=== PATIENT | female | born 1965 | race Hispanic/Latino ===

== ENCOUNTER 2017-07-07 13:24 | Emergency (ER) | payer BC ==
[~2017-07-07] VITALS: Ht 157.5 cm; Wt 78.7 kg
[~2017-07-07 13:24] MED LIST: CITRATE OF MAG296 ML PO; FLEXERIL5 MG PO; ULTRAM50 MG PO
[2017-07-07 14:04] LABS: HEMATOCRIT 39.8 % (36.0-46.0); MCH 28.7 PG (29.0-34.0); MCHC 34.2 G/DL (30.0-36.0); MEAN PLAT.VOLUME 10.2 uM^3 (9.5-12.4); PLATELET COUNT 255 K/uL (156-360); RBC DIS.WIDTH-CV 12.3 % (11.8-14.6); RBC DIS.WIDTH-SD 37.1 % (39-53); RED BLOOD COUNT 4.74 M/uL (3.80-5.20); WHITE BLOOD COUNT 7.9 K/uL (4.1-10.2)
[2017-07-07 14:12] LABS: ADD MIUA? YES; BILIRUBIN NEGATIVE; BLOOD NEGATIVE; COLOR STRAW ((YELLOW)); GLUCOSE (STRIP) NEGATIVE; KETONES NEGATIVE; LEUKOCYTES LARGE; NITRITE NEGATIVE; PROTEIN (STRIP) NEGATIVE; SPECIFIC GRAVITY 1.008 (1.000-1.030); UROBILINOGEN 0.2 MG/DL (0.2-1.0)
[2017-07-07 14:14] LABS: CHLORIDE 106 mEq/L (99-109); POTASSIUM 4.4 mEq/L (3.7-5.4); SODIUM 139 mEq/L (136-147)
[2017-07-07 14:16] LABS: BACTERIA RARE /HPF; EPITHELIAL CELLS 1+ /HPF; MUCUS NONE SEEN /LPF; RED BLOOD CELLS 0-5 /HPF (0-5); UCUL ADDED? NO; WHITE BLOOD CELLS 0-5 /HPF (0-5)
[2017-07-07 14:16] LABS: GLUCOSE 91 mg/dL (70-99)
[2017-07-07 14:17] LABS: ANION GAP 8 MEQ/L (2-14)
[2017-07-07 14:18] LABS: TOTAL BILIRUBIN 0.4 mg/dL (0.0-1.0)
[2017-07-07 14:20] LABS: ALKALINE PHOSPHATASE 79 IU/L (3-129); GFR ESTIMATE (CALCULATED) > 59 mL/min/
[2017-07-07 14:21] LABS: UREA NITROGEN (BUN) 9 mg/dL (9-23)
[2017-07-07 14:28] LABS: QUANTITATIVE HCG < 4.0 MIU/ML
[2017-07-07 15:59] LABS: LIPASE 32 U/L (1.0-51.0)
[2017-07-07] MEDS ORDERED: MOTRIN600 MG PO (18:53)
[2017-07-07] MEDS ORDERED: ULTRACET1 TABLET PO (18:53)
[2017-07-07 19:20] VITALS: BP 131/77
== END 2017-07-07 19:22 | disposition home or self-care (01) ==
LOC: EME 13:24
DX: R10.11 Right upper quadrant pain (principal); G89.29 Other chronic pain; K57.32 Diverticulitis of large intestine without perforation or abscess without bleeding; K59.00 Constipation, unspecified; Z90.710 Acquired absence of both cervix and uterus
CPT/HCPCS: 74176; 76705; 80053; 81003; 83690; 84702; 85027; 87077; 87086; 87186; 99281; 99285